=== PATIENT | male | born 2000 | race Caucasian/White ===

== ENCOUNTER → 2024-05-03 10:16 | Outpatient (REF) | payer OTHER, SELFPAY | LOC: RAD 10:16 | PROVIDERS: ATTENDING PHYSICIAN Orthopaedic Surgery; FAMILY PHYSICIAN Family Medicine | DX: M25.572 Pain in left ankle and joints of left foot (principal); S82.892S Other fracture of left lower leg, sequela | CPT/HCPCS: 73700 ==